=== PATIENT | female | born 1935 | race Caucasian/White ===

== ENCOUNTER 2018-03-30 19:22 | Emergency (ER) | payer MEDICARE ==
[~2018-03-30] VITALS: Ht 157.5 cm; Wt 58.7 kg
[~2018-03-30 19:22] MED LIST: CARV3.12 PO; DOCU100S PO; LORTA5 PO; PAXI30TA7 PO; ST JTAB PO; ZOCO40TA PO
[2018-03-30 19:28] VITALS: BP 162/71; PULSE 73; RESP 18; TEMP 98.4; O2SAT 96
--- NOTE | 2018-03-30 19:39 | PD ---
HPI Chief Complaint: Fall Time Seen by Provider: 19:32 Travel History International Travel<30 days: No Contact w/Intl Traveler<30days: No Traveled to known affect area: No History of Present Illness HPI 82-year-old female complains of laceration to right eyebrow and abrasion to right forearm. Patient tripped and fell this evening. Patient denies loss of consciousness. Patient denies any headache or neck pain. Patient denies any visual change. Patient denies any chest pain or shortness of breath. Patient denies abdominal pain. Patient complains of bruising to her right forearm. Patient denies any focal weakness or numbness of the extremity. Patient's not sure Td status. PFSH Past Medical History Arthritis: Yes Blood Disorders: No Anxiety: Yes Cancer: Yes (SPINAL) Cardiac Catheterization: Yes (1985- NO STENTS) Cardiovascular Problems: Yes High Cholesterol: Yes Chemotherapy: Yes Chest Pain: Yes Cerebrovascular Accident: Yes (1984-no deficit - PT DENIES) Coronary Artery Disease: Yes Endocrine: No Gastrointestinal Disorders: Yes (gastroparesis) GERD: Yes Genitourinary: No Hypertension: Yes Immune Disorder: No Musculoskeletal: Yes Neurologic: Yes Psychiatric: Yes Reproductive: Yes (PELVIC MASS) Respiratory: No Myocardial Infarction: Yes (1980) Radiation Therapy: Yes Triglycerides - High: Yes Menopausal: Yes : 2 Para: 2 Dilation and Curettage (D&C): Yes Past Surgical History Cholecystectomy: Yes Hysterectomy: Yes Oral Surgery: Yes (T&A) Pacemaker: No Thoracic Surgery: Yes (BREAST BIOPSY, EXPLORITORY SURGERY R/T SPINAL CA) Tonsillectomy: Yes Other Surgery: Yes (LEFT BREAST BIOPSY 1968, LEFT ELBOW SURGERY) Social History Alcohol Use: No Tobacco Use: No Substance Use: No Allergies-Medications (Allergen,Severity, Reaction): Coded Allergies: iohexol (Unverified Allergy, Unknown, HIVES AFTER PREMED. NO MORE CONTRAST!!, 06/08/17) Reported Meds & Prescriptions Reported Meds & Active Scripts Active Colace (Docusate Sodium) 100 Mg/10 Ml Soln 100 Mg PO Q12 [place] 5/325 (Hydrocodone-Acetaminophen) Acetaminophen 325/5 Hydrocodone Tab 1 Tab PO Q4H PRN Reported Carvedilol 3.125 Mg Tab 3.125 Mg PO BID Aspirin Ec Low Dose (Aspirin) 81 Mg Tab 81 Mg PO HS Zocor (Simvastatin) 40 Mg Tab 40 Mg PO HS Paxil (Paroxetine HCl) 30 Mg Tab 30 Mg PO DAILY Review of Systems General / Constitutional: No: Fever Eyes: No: Visual changes HENT: No: Headaches Cardiovascular: No: Chest Pain or Discomfort Respiratory: No: Shortness of Breath Gastrointestinal: No: Abdominal Pain Genitourinary: No: Dysuria Musculoskeletal: No: Pain Skin: No Rash Neurologic: No: Weakness Psychiatric: No: Depression Endocrine: No: Polydipsia Hematologic/Lymphatic: No: Easy Bruising Physical Exam Narrative GENERAL: Well-nourished, well-developed patient. SKIN: Focused skin assessment warm/dry. HEAD: Normocephalic. EYES: No scleral icterus. No injection or drainage. Patient has a 4 cm laceration right above the right eyebrow. Minor bleeding noted. Pupils 2 mm equal reactive. NECK: Supple, trachea midline. No JVD or lymphadenopathy. No neck tenderness on palpation. CARDIOVASCULAR: Regular rate and rhythm without murmurs, gallops, or rubs. RESPIRATORY: Breath sounds equal bilaterally. No accessory muscle use. GASTROINTESTINAL: Abdomen soft, non-tender, nondistended. MUSCULOSKELETAL: No cyanosis, or edema. Patient has mild ecchymosis with minor skin abrasion ulnar aspect the right forearm. Full range of motion of the right arm. No tenderness on palpation of bony structure. BACK: Nontender without obvious deformity. No CVA tenderness. Neurologic exam normal. Data Data Last Documented VS Vital Signs Date Time Temp Pulse Resp B/P (MAP) Pulse Ox O2 Delivery O2 Flow Rate FiO2 03/30/18 19:28 98.4 73 18 162/71 (101) 96 Orders Orders Lidocai-Epi 1%-1:100,000 Inj (Xylocaine- (03/30/18 19:45) Lidocai-Epi 1%-1:100,000 Inj (Xylocaine- (03/30/18 19:45) Tetanus/Diphtheria Tox Adult (Tetanus/Di (03/30/18 20:00) MDM Medical Decision Making Medical Screen Exam Complete: Yes Emergency Medical Condition: Yes Differential Diagnosis Differential diagnosis including laceration, skull fracture, intracranial hemorrhage, extremity injury. Narrative Course 82-year-old female with right eyebrow laceration. Patient is not sure of TD status. Td booster given. Procedures Procedure Narrative LACERATION LOCATION: Right eyebrow LENGTH: 4 cm NUMBER OF STITCHES/RUSS: 8 REPAIR: The area of the laceration was prepped with Betadine and sterilely draped. The laceration was infiltrated with 1% lidocaine with epinephrine. The wound was copiously irrigated and explored without evidence of foreign body , tendon injury or neurovascular injury. The wound was closed using 5-0 Vicryl and 5-0 Ethilon. This was a 2 layers repair. A sterile dressing was applied. The patient was advised to keep the dressing clean and dry. Patient tolerated the procedure well. Diagnosis Primary Impression: Laceration of right eyebrow Qualified Codes: S01.111A - Laceration without foreign body of right eyelid and periocular area, initial encounter Additional Impression: Abrasion of right forearm Patient Instructions: General Instructions Additional Instructions: Wound care daily. Head trauma instructions given. Return or see personal physician in 7 days for suture removal. Med/Other Pt SpecificInfo: No Change to Meds Disposition: 01 DISCHARGE HOME Condition: Stable Shahriar Blackwell MD Mar 30, 2018 19:39
[2018-03-30] MEDS ORDERED: LIDOCAINE 1%/EPINEPHrine 1:100,000 SOLN 20 ML VIAL INFIL ONE ×2 (19:45)
[2018-03-30] MEDS ORDERED: TETANUS/DIPHTHERIA TOXOID ADULT 0.5 ML VIAL IM ONE (20:00)
== END 2018-03-30 20:53 | disposition home or self-care (01) ==
LOC: PHED 19:22
DX: S01.111A Laceration without foreign body of right eyelid and periocular area, initial encounter (principal); S50.811A Abrasion of right forearm, initial encounter; W01.0XXA Fall on same level from slipping, tripping and stumbling without subsequent striking against object, initial encounter; F41.9 Anxiety disorder, unspecified; E78.00 Pure hypercholesterolemia, unspecified; I25.10 Atherosclerotic heart disease of native coronary artery without angina pectoris; I10 Essential (primary) hypertension; Z86.73 Personal history of transient ischemic attack (TIA), and cerebral infarction without residual deficits; Z23 Encounter for immunization
CPT/HCPCS: 12013; 90471; 90714